=== PATIENT | female | born 1990 | race Caucasian/White ===

== ENCOUNTER 2021-11-27 06:46 | Inpatient (IN) | payer OTHER, SELFPAY ==
[2021-11-27] VITALS (53 sets, daily range): BP systolic 82–137; BP diastolic 36–79; PULSE 65–133; RESP 16–20; TEMP 36.6–37.9; O2SAT 83–100; BMI 35.9
[2021-11-27] MEDS: LACTATED RINGERS 1,000 ML 125 ML IV CONT ×2 (07:05→07:44)
--- NOTE | 2021-11-27 07:10 | LDADM ---
This patient, Jennifer Cee, was admitted to Labor/Delivery/Recovery 106 on 11/27/21 at 06:46. Plans for labor, pain management and were discussed with patient. Patient/family oriented to hospital policies and general routines including ID bracelet, bed and alarms, visiting hours, pain management, procedures, bathroom and other care routines, personal items, smoking policy, room service/diet and guest tray routines, infant security routines, and visiting hours. Patient/Family are encouraged to report perceived risks to care and to ask questions if they do not understand what they are told or what they should do. See [facility]BIX for further documentation.
[2021-11-27 07:17] LABS: Basophils Absolute Auto 0.1 K/mm3 (0.0-0.1); Basophils Percent Auto 0.5 % (0.2-1.2); Eosinophils Absolute Auto 0.1 K/mm3 (0-0.3); Eosinophils Percent Auto 0.7 % (0-4.4); Hematocrit 33.8 % (37.0-47.0); Hemoglobin 11.4 g/dL (12.0-15.0); Immature Granulocyte Percent A 1.3 % (0-0.5); Lymphocytes Absolute Auto 2.38 K/mm3 (0.9-3.2); Lymphocytes Percent Auto 15.8 % (18.3-44.2); Mean Corpuscular HGB Conc 33.7 g/dl (32-36); Mean Corpuscular Hemoglobin 30.2 pg (26-34); Mean Corpuscular Volume 89.7 fl (80-100); Mean Platelet Volume 10.3 fl (7.4-10.4); Monocytes Absolute Auto 0.8 K/mm3 (0.1-0.6); Monocytes Percent Auto 5.2 % (2.6-8.5); Neutrophils Absolute Auto 11.6 K/mm3 (1.3-6.7); Neutrophils Percent Auto 76.5 % (45.5-73.1); Platelet Count Result 230 k/mm3 (150-375); Red Blood Count 3.77 M/mm3 (4.2-5.4); Red Cell Distribution Width 13.2 % (11.5-14.5); White Blood Count 15.1 K/mm3 (4.5-10.0)
[2021-11-27] MEDS: PHENYLEPHRINE 1,000 MCG/10 ML SYRINGE 1000 MCG (08:09)
[2021-11-27] MEDS: OXYTOCIN 30 UNITS/NS 500 ML 30 UNITS/500 ML BAG 999 UNITS IV CONT (10:08)
--- NOTE | 2021-11-27 10:20 | WPDOBADMIT ---
Obstetrics - Admit Note Admission Note: record reviewed. No pertinent additions to the history and/or any subsequent changes in the physical findings that are not consistent with the expected course of the were found. Additions to the history and/or subsequent changes in the physical findings follow. None.
--- NOTE | 2021-11-27 10:20 | WPDHPUPDATE1 ---
History and Physical Update Update Date/Time: 11/27/21 10:20 History and Physical has been reviewed, including an updated exam of the patient. There are NO changes in the patient's condition. Risks, benefits, and alternatives have been discussed and questions answered. Patient agrees to proceed with procedure.
--- NOTE | 2021-11-27 10:20 | PM.OBPRVD ---
OB - Delivery Note Procedure Route of delivery: Episiotomy description: None Laceration Description: Perineal - 2nd Degree Delivery repair: chromic Specimen: No Quantitative Blood Loss (ml): 300 Anesthesia type: Epidural Disposition: floor Narrative: Patient prepped and draped usual manner for this procedure. Maternal expulsive efforts readily delivered vertex rest of baby difficulty. Cord was and placenta delivered spontaneously. Cervix vagina vulva were inspected with second-degree laceration noted. This was approximated using 2 0 chromic on the vaginal tissue deep tissue in the subcuticular layer to approximate the perineum. At this point the procedure was considered terminated. Baby Weeks of gestation at delivery: 37 gender: Male Weight (pounds): 7 Weight (ounces): 5 presentation: vertex score one minute: 9 score five minutes: 9 AMG Delivery Billing Delivery Delivery: Delivery Charge
[2021-11-27] MEDS: OXYTOCIN 30 UNITS/NS 500 ML 30 UNITS/500 ML BAG 125 UNITS IV CONT (10:36)
[2021-11-27] MEDS: BENZOCAINE 20% AER SPR (*SP) 56 GM CAN 1 SPRAY TOPICAL (12:06)
[2021-11-27] MEDS: WITCH HAZEL 40 PADS 1 PAD TOPICAL (12:06)
--- NOTE | 2021-11-27 12:51 | PC.NURSE ---
Patient transferred to post room #277 via wheelchair. Support person present, baby also with mom. Oriented to unit, room, information board, rooming in, admission packet and security measures. Patient verbalizes understanding.
[2021-11-27] MEDS: IBUPROFEN 600 MG TABLET PO ×2 (13:23→22:31)
[2021-11-27 16:49] LABS: Rapid Plasma Reagin Non-Reactive (NonReactive)
[2021-11-27] MEDS: ACETAMINOPHEN 325 MG TABLET 650 MG PO ×2 (16:49→22:30)
[2021-11-27] MEDS: PANTOPRAZOLE 40 MG TABLET PO (22:30)
[2021-11-28 03:45] VITALS: BP 107/61; PULSE 86; RESP 18; TEMP 36.7
[2021-11-28 05:41] LABS: Hematocrit 24.4 % (37.0-47.0)
--- NOTE | 2021-11-28 07:33 | WPDANLDPN2 ---
Anes-Prog Note L&D Date/Time: 11/28/21 07:33 Comfortable throughout: labor and delivery Neuraxial method: epidural Epidural/Spinal procedure site: clean & non-tender Neuro status: Neuro function grossly intact. Cardiovascular status: normal Respiratory status: normal Airway patency: baseline Mental status: baseline Post-Op hydration status: normal Vital Signs: Last Vital Signs Temp 98.0 F 11/28/21 03:45 Pulse 86 11/28/21 03:45 Resp 18 11/28/21 03:45 BP 107/61 11/28/21 03:45 Pulse Ox 100 11/27/21 16:30 Pain score (VAS): 0 I/O: Intake & Output 11/27/21 11/27/21 11/28/21 15:59 23:59 07:59 Intake Total 1000 Output Total 426 Balance 574 Post-procedural complaints: none Patient feedback: Patient satisfied with anesthetic care.
[2021-11-28 08:10] VITALS: BP 113/61; PULSE 91; RESP 16; TEMP 36.9; O2SAT 97
[2021-11-28] MEDS: DOCUSATE SODIUM 100 MG CAPSULE PO ×2 (08:25→15:50)
[2021-11-28] MEDS: PANTOPRAZOLE 40 MG TABLET PO (08:25)
[2021-11-28] MEDS: MULTIVIT/MIN/PREN/FOL AC/IRON TABLET 1 TAB PO (08:25)
[2021-11-28] MEDS: POLYSACCHARIDE IRON COMPLEX 150 MG CAPSULE PO ×2 (08:25→15:50)
[2021-11-28] MEDS: IBUPROFEN 600 MG TABLET PO ×2 (08:25→15:50)
--- NOTE | 2021-11-28 12:25 | PM.OBDSVD ---
DS: Admitting Diagnosis Discharge Date 11/29/2021 Admitting Diagnosis OB - DS: Summary OB Procedures : None OB Procedures Intrapartum: Spontaneous Vag Delivery OB Procedures: : None Time Spent with Patient Time attestation: Total time spent providing and/or coordinating discharge services: DS: Data Data Completed and Pending Labs on day of discharge: Labs from last 24 hours 11/28/21 11/27/21 03:32 07:10 Hgb 8.0 L D Hct 24.4 L RPR Non-reactive Discharge Plan Discharge Discharging Clinician: Rajesh Shankar Patient Disposition: Home, Self-Care Activity: as tolerated Diet: as tolerated Patient Instructions: Antibiotic Form Stand Alone Forms: General Discharge Information Follow-up/Referrals: Rajesh Shankar MD [Physician] - 3 Weeks Discharge Medications: New ibuprofen 600 mg Tablet 600 mg PO Q6H PRN (Reason: Cramping) Qty: 30 RF: 0 Continued vit-iron fum-folic ac 65 mg iron- 1 mg tablet 1 tablet PO DAILY RF: 0 pantoprazole 40 mg tablet,delayed release (DR/EC) 40 mg PO DAILY RF: 0 Date of admission: 11/27/21 06:46 Primary Care Provider: PHYSICIAN,PROJECT SAFETY MANAGER Admitting Provider: Rajesh Shankar Attending physician on admission: Rajesh Shankar Condition: Stable
--- NOTE | 2021-11-28 14:02 | PC.NURSE ---
0824 - Introductions were made and mother led the discussion of her desires and plan to feeding her baby. Mother plans to breastfeed during the day and bottle feed at night. Reviewed handwashing to prevent infection before and after taking care of her baby. Mother verbalizes she is able to independently latch infant. Discussed how to watch for early feeding cues, place skin to skin, then feeding baby when is ready or every 2-3 hours. Reviewed positioning/alignment with the use of the mom and baby guide. She denies any nipple discomfort. Reviewed there is to be no pain with , how to detach from the breast, visuals to watch for to confirm effective . Reviewed effective latching, milk production and storage with resources using the visual handout/mom and baby guide. Mother is feeding as needed to meet requirements. Mother has verbalized understanding watching for feeding cues for responsive feeding or how to stimulate to initiate from the start of the last feeding. Mother voiced understanding to feed when she sees feeding cues, 8-12 times in 24 hours approximately every 2-3 hours from the start of the last feeding or she has discomfort with nursing. Reported to primary RN.
[2021-11-28] MEDS: SIMETHICONE 80 MG TAB.CHEW PO (15:50)
[2021-11-28 18:40] VITALS: BP 108/58; PULSE 83; RESP 18; TEMP 36.9
[2021-11-28] MEDS: ACETAMINOPHEN 325 MG TABLET 650 MG PO (19:28)
[2021-11-28] MEDS: CALCIUM CARBONATE (TUMS) 500 MG (200 MG ELEMENTAL) PO (21:55)
[2021-11-29 07:40] VITALS: BP 111/63; PULSE 94; RESP 18; TEMP 36.3; O2SAT 100
--- NOTE | 2021-11-29 08:30 | PC.NURSE ---
introductions made and plan of care discussed per post , pain management, breast feeding, daily care activities and pending discharge to home. PT oriented to room and surrounding area. PT and significant other both recipients of instructions and no barriers to learning identified at this time. PT received instructions this shift via one to one discussion, mom baby care guide and demonstrations. Oriented to unit, room, information board, rooming in, admission packet and security measures. Patient verbalizes understanding.
[2021-11-29] MEDS: CALCIUM CARBONATE (TUMS) 500 MG (200 MG ELEMENTAL) PO (08:44)
[2021-11-29] MEDS: PANTOPRAZOLE 40 MG TABLET PO (08:44)
[2021-11-29] MEDS: DOCUSATE SODIUM 100 MG CAPSULE PO (08:44)
[2021-11-29] MEDS: MULTIVIT/MIN/PREN/FOL AC/IRON TABLET 1 TAB PO (08:44)
[2021-11-29] MEDS: LANOLIN (LANSINOH) 7.5 GM CREAM 1 APPLIC TOPICAL (08:44)
[2021-11-29 08:45] VITALS: PULSE 94; RESP 18; O2SAT 100
[2021-11-29] MEDS: POLYSACCHARIDE IRON COMPLEX 150 MG CAPSULE PO (08:45)
[2021-11-29] MEDS: IBUPROFEN 600 MG TABLET PO (08:45)
[2021-11-29] MEDS: ACETAMINOPHEN 325 MG TABLET 650 MG PO (08:46)
--- NOTE | 2021-11-29 11:00 | PC.NURSE ---
PT receive discharge instructions per protocol and verbalized understanding of such care.
--- NOTE | 2021-11-29 11:18 | PC.NURSE ---
0910 - Mother led the conversation with regards to her experience feeding her baby so far. Reminded parents to use good handwashing to prevent infection. has had appropriate feedings in the past 24 hours and meets the outcomes for weight, output and jaundice. Mother states she feels confident to continue effectively her at home. Reviewed production of human milk, transition of milk, signs of adequate intake and engorgement prevention/relief and when to call the care provider using the mom and baby guide. Reviewed community resources and outpatient services as listed in the mom and baby guide/[facility] website. Reinforced watching for feeding cues with responsive feeding (8-12 times in 24 hours) and how to stimulate to initiate feeding three hours from the start of the last feeding. Mother voiced and demonstrated understanding of information shared. Mom latched infant optimally onto the left breast in football position with rocking motion and effective suck/swallow ratios. Reported to primary RN.
--- NOTE | 2021-11-29 11:50 | PC.NURSE ---
PT discharged to home ambulatory accompanied by spouse and and taken to waiting car. Follow up appts confirmed
--- NOTE | 2021-11-30 08:13 | PM.OBDSVD ---
DS: Admitting Diagnosis Discharge Date 11/29/21 Admitting Diagnosis OB - DS: Summary OB Procedures : None OB Procedures Intrapartum: Spontaneous Vag Delivery OB Procedures: : None Time Spent with Patient Time attestation: Total time spent providing and/or coordinating discharge services: Discharge Plan Discharge Discharging Clinician: Rajesh Shankar Patient Disposition: Home, Self-Care Activity: as tolerated Diet: as tolerated Discharge Instructions: Education: Mom and Baby Guide Given to: Mother Follow-Up: Call your delivering provider's office for an appointment to be seen in: 3 weeks Mom and baby should come to the [facility] for the follow-up appointment. Appointment Date/Time: November 30, 2021 at 9:00 am What to expect at your follow-up visit: Blood Pressure Check Call [phone] if you are unable to keep your appointment time. BREAST CARE: * Wear a snug supportive bra. * For engorgement discomfort: Breast Feeding: * Apply warm moist washcloths * Express milk as needed to relieve engorgement * Wear loose clothing Bottle Feeding: * May apply ice packs * For sore nipples: * Identify correct latch-on * Apply warm moist washcloths before and after nursing * Air dry nipples after nursing * May apply Lansinoh cream to nipples PERINEAL CARE: * Until bleeding stops, use your tone bottle after urinating * Change your pad frequently throughout the day * You may take sitz baths several times a day (fill your bathtub with warm water and soak for 20 minutes.) Do NOT bathe in the water * No tub baths until seen by your physician - You may shower ACTIVITY: * Rest as much as possible. * Do not exercise or lift anything heavier than your baby (such as laundry or other children.) * Avoid stairs or driving as much as possible. * Do not put anything into the vagina. No douching, tampons, or sexual activity until seen by physician. NOTIFY PHYSICIAN IF YOU HAVE ANY QUESTIONS OR IF ANY OF THE FOLLOWING SYMPTOMS OCCUR: * If your perineum becomes red, swollen, or more painful than what you have experienced in the hospital. * If your vaginal bleeding becomes foul smelling. * If your vaginal bleeding becomes more heavy than a period or if your bleeding changes from pink to bright red. However, you may pass an occasional walnut-sized clot once or twice for the first week . * If you experience a sharp, shooting pain in you calves. * If you discover a hard, reddened area on your breast or if you experience flu-like symptoms. * If you have a fever of 100.4 or greater. DIET: * Eat regular, well-balanced meals. * Drink plenty of fluids daily. If , drink to thirst. Patient Instructions: Antibiotic Form Stand Alone Forms: General Discharge Information Follow-up/Referrals: Rajesh Shankar MD [Physician] - 3 Weeks Discharge Medications: New ibuprofen 600 mg Tablet 600 mg PO Q6H PRN (Reason: Cramping) Qty: 30 RF: 0 Continued vit-iron fum-folic ac 65 mg iron- 1 mg tablet 1 tablet PO DAILY RF: 0 pantoprazole 40 mg tablet,delayed release (DR/EC) 40 mg PO DAILY RF: 0 Date of admission: 11/27/21 06:46 Primary Care Provider: PHYSICIAN,SCENERY BUILDER Admitting Provider: Rajesh Shankar Attending physician on admission: Rajesh Shankar Condition: Stable
[2021-11-30 09:00] VITALS: BP 132/74; PULSE 96; RESP 20; TEMP 37.2; O2SAT 100
== END 2021-11-29 11:50 | disposition home or self-care (01) | DRG 807 ==
LOC: ANHLDR 06:59 → ANHOB2 13:21
PROVIDERS: Admitting Provider Obstetrics & Gynecology; Visit Provider Obstetrics & Gynecology
DX: O70.1 Second degree perineal laceration during delivery (principal); Z37.0 Single live birth; O76 Abnormality in fetal heart rate and rhythm complicating labor and delivery; Z3A.37 37 weeks gestation of pregnancy
CPT/HCPCS: 36415; 85014; 85018; 85025; 86592; 86850; 86900; 86901; A9270; J2370; J2590; J7120

== ENCOUNTER 2022-03-20 16:26 | Outpatient (CLI) | payer OTHER, SELFPAY ==
[2022-03-20 17:14] LABS: Beta HCG Quantitative < 2.39 mIU/ML
== END 2022-03-20 16:27 | disposition home or self-care (01) ==
LOC: ANHLAB 16:28
PROVIDERS: PCP Family Medicine; Visit Provider Obstetrics & Gynecology
DX: N92.6 Irregular menstruation, unspecified (principal)
CPT/HCPCS: 36415; 84702

== ENCOUNTER 2024-11-03 03:14 | Day surgery (SDC) | payer BC, SELFPAY ==
[2024-10-19 12:13] VITALS: BMI 24.7
[2024-11-03 11:19] VITALS: BP 127/71; PULSE 86; RESP 19; TEMP 36.4; O2SAT 100
[2024-11-03 11:23] LABS: BEDSIDEPREGUCG Negative (Negative)
--- NOTE | 2024-11-03 11:33 | P.PNAN_ITS ---
Anes - Initial Pre Proc Eval Procedure: Operation Date: 11/03/24 14:00 Proposed Procedures p Colonoscopy - Edwardo Ames MD Date/Time: 11/03/24 11:33 Surgeon: Edwardo Ames MD Pre Op Diagnosis: constipation, perianal venous thrombosis Patient Data Age: 34 Gender: F Height: 1.57 m Weight: 62.2 kg Last Vital Signs Temp 36.4 C 11/03/24 11:19 Pulse 86 11/03/24 11:19 Resp 19 11/03/24 11:19 BP 127/71 11/03/24 11:19 Pulse Ox 100 11/03/24 11:19 O2 Del Method Room Air 11/03/24 11:19 Allergies Allergy/AdvReac Type Severity Reaction Status Date / Time No Known Allergies Allergy Verified 11/03/24 11:18 Home Medications ?Medication ?Instructions ?Recorded ?Confirmed ?Type etonogestrel 68 mg subdermal 1 implant subdermal ONCE 06/19/22 10/19/24 History implant (Nexplanon) hydrocortisone 2.5 % topical cream 1 applic RECTAL DAILY PRN 10/05/24 10/19/24 Rx with perineal applicator hemorrhoids #30 grams (Anusol-HC) linaclotide 72 mcg capsule 72 mcg Capsule#1 Samples 10/14/24 10/19/24 Sample (Linzess) linaclotide 72 mcg capsule 72 mcg PO DAILY #30 caps 10/14/24 10/19/24 Rx (Linzess) Laboratory Tests 11/03/24 11:19 POC Urine HCG, Qual Negative (Negative) Patient hx anesthesia problems: none Family hx anesthesia problems: none Results Review: All pre-operative results and documents have been reviewed as part of the pre- operative evaluation. [facility] Past Medical History Medical History Insertion of Nexplanon Surgical History Surgical History [place] teeth removed Hx of LASIK (~06/2016) both eyes Family History Family History Mother Carcinoma of colon Social History Social History Smoking status: Never smoker Alcohol intake: current Alcohol use details: rarely Substance use: never Substance use type: does not use Do You Feel Safe in your Home?: Yes Lack of Transportation: No Lack of Food: Never True Current Housing: I Have Housing Concerned About Future Housing: No Difficulty Paying Gas/Electric Bills: No Difficulty Paying for Meds: No Currently Unemployed: No Education: Bachelor's Degree Difficulty w/ Childcare or Family Care: No Living arrangements: with family Additional living arrangements comments: with sp 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 Gender identity (if verbalized by the patient): Female Sexual Orientation (if Verbalized by the Patient): Straight or Heterosexual Spiritual care concerns: No Anes - Eval Final PreProcedure Day of Procedure 11/03/24 11:33 Patient weight: overweight Heart: regular rate and rhythm Lungs: clear to auscultation Airway: Mallampati scale class 1 Neurological: alert and oriented Last oral intake: >/= 8 hours ASA classification: II Emergent: no Anesthetic plan: proceed Anesthesia type and monitoring: general GIVS Results Review: All pre-operative results and documents have been reviewed as part of the pre- operative evaluation. Informed Consent: The patient's anesthetic plan and its attendant risks and benefits were discussed with the patient/family/POA. Questions were solicited and answers provided to the satisfaction of the patient/family/POA.
[2024-11-03] MEDS: LACTATED RINGERS 1,000 ML 150 ML IV CONT (11:55)
--- NOTE | 2024-11-03 12:01 | WPDHPUPDATE1 ---
History and Physical Update Update Date/Time: 11/03/24 12:01 History and Physical has been reviewed, including an updated exam of the patient. There are NO changes in the patient's condition. Risks, benefits, and alternatives have been discussed and questions answered. Patient agrees to proceed with procedure.
[2024-11-03 12:19] VITALS: BP 74/38; PULSE 78; RESP 20; O2SAT 100
[2024-11-03 12:29] VITALS: BP 92/59; PULSE 74; RESP 18; O2SAT 100
[2024-11-03 12:39] VITALS: BP 100/52; PULSE 78; RESP 20; O2SAT 100
== END 2024-11-03 12:52 | disposition home or self-care (01) ==
PROVIDERS: Anesthesiology; Referring Provider Nurse Practitioner Family; Visit Provider Internal Medicine Gastroenterology
PROC: 0DJD8ZZ Inspection of Lower Intestinal Tract, Via Natural or Artificial Opening Endoscopic (ICD-10-PCS; CPT 45378; principal; 2024-11-03 14:00)
DX: K64.8 Other hemorrhoids (principal); Z98.890 Other specified postprocedural states; Z80.0 Family history of malignant neoplasm of digestive organs
CPT/HCPCS: 45378; J2704; J7120